=== PATIENT | female | born 1990 ===

== ENCOUNTER 2019-10-29 20:35 | Emergency (ER) | payer OTHER ==
[2019-10-31 12:16] LABS: SARS-CoV-2 MS2 Positive; SARS-CoV-2 N Gene Positive; SARS-CoV-2 S Gene Positive; SARS-CoV-2 by NAA DETECTED (NotDetected); SARS-CoV-2 orf1ab Positive
== END 2019-10-29 21:02 | disposition home or self-care (01) ==
LOC: BURERS 20:35
DX: U07.1 COVID-19 (principal)
CPT/HCPCS: 87635; 99284; U0003